=== PATIENT | female | born 1960 | race Caucasian/White ===

== ENCOUNTER 2024-07-22 21:11 | Inpatient (IN) | payer OTHER ==
[2024-07-22] MEDS ORDERED: ACETAMINOPHEN INJECTION 100 ML ONE (21:41)
[2024-07-22 22:00] LABS: BASO % 0.4 % (0-2.0); EOS % 4.4 % (0-4.5); HEMATOCRIT 35.6 % (32.4-45.2); HEMOGLOBIN 11.3 GM/dL (10.7-15.3); LYMPH % 2.3 % (8-40); MCHC 31.8 g/dl (32.0-36.0); MEAN CELL VOLUME 78.7 fl (80-96); MEAN PLT VOLUME 7.4 fl (7.5-11.1); MONO % 2.1 % (3.8-10.2); NEUT % 90.8 % (42.8-82.8); PLATELET COUNT 419 10^3/uL (134-434); RBC 4.53 M/mm3 (3.60-5.2); RDW 18.6 % (11.6-15.6); WHITE BLOOD COUNT 12.5 K/mm3 (4.0-10.0)
[2024-07-22 22:02] LABS: VENOUS BASE EXCESS -0.1 mmol/L (-2-2); VENOUS O2 SATURATION 96.5 % (70-80); VENOUS PCO2 30.6 mmHg (38-52); VENOUS PH 7.485 (7.310-7.410)
[2024-07-22 22:06] LABS: INR 1.15 (0.83-1.09); PROTHROMBIN TIME (PATIENT) 13.2 SEC (9.7-13.0)
[2024-07-22 22:09] LABS: ACTIVATED PTT 37.2 SECONDS (25.2-36.5)
[2024-07-22 22:22] LABS: POTASSIUM 4.7 mmol/L (3.5-5.1)
[2024-07-22] MEDS: SODIUM CHLORIDE 0.9% 500 ML INFUS.BAG IV ONE ×3 (22:23→23:40)
[2024-07-22 22:26] LABS: ALBUMIN 3.1 g/dl (3.4-5.0); CALCIUM 9.4 mg/dL (8.5-10.1)
[2024-07-22] MEDS: ACETAMINOPHEN 1000 MG/100 ML BAG IVPB ONE (22:26)
[2024-07-22 22:27] LABS: BLOOD UREA NITROGEN 24.9 mg/dL (7-18)
[2024-07-22 22:30] LABS: CREATININE 1.2 mg/dL (0.55-1.3)
[2024-07-22 22:31] LABS: BILIRUBIN,TOTAL 0.5 mg/dL (0.2-1); TOT PROT 7.4 g/dl (6.4-8.2)
[2024-07-22 22:40] LABS: LACTIC ACID 2.3 mmol/L (0.4-2.0)
[2024-07-22] MEDS ORDERED: PIPERACILLIN/TAZOB 2.25 GM 2.25 GM/50 ML BAG IVPB ONE (22:44)
[2024-07-22] MEDS: PIPERACILLIN/TAZOB 2.25 GM 2.25 GM in DEXTROSE 5%-WATER - 50 ML IVPB ONE (23:17)
[2024-07-22] MEDS ORDERED: VANCOMYCIN 1 GRAM (PRE-DOCKED) 1,000 MG/250 ML BAG IVPB ONE (23:37)
[2024-07-22] MEDS ORDERED: AZITHROMYCIN IVPB 500 MG/250 ML BAG IVPB ONE (23:57)
[2024-07-23] MEDS: AZITHROMYCIN IVPB 500 MG in DEXTROSE 5%-WATER - 250 ML IVPB ONE
[2024-07-23 00:02] LABS: EPI CELLS >36 /uL (0-25.1); HYALINE CASTS 8 /uL (0-3.1); URINE APPEARANCE CLOUDY; URINE BACTERIA 7 /uL (0-1359); URINE BILIRUBIN NEGATIVE (NEGATIVE); URINE COLOR YELLOW; URINE GLUCOSE (UA) NEGATIVE (NEGATIVE); URINE KETONE TRACE (NEGATIVE); URINE LEUK ESTERASE NEGATIVE (NEGATIVE); URINE NITRITE NEGATIVE (NEGATIVE); URINE PROTEIN 1+ (NEGATIVE); URINE RBC 26 /uL (0-23.9); URINE UROBILINOGEN 0.2 mg/dL (0.2-1.0)
[2024-07-23] MEDS ORDERED: NOREPINEPHRINE BITARTRATE 4 MG/4 ML ML IV ONE (00:51)
[2024-07-23] MEDS ORDERED: HYDROCORTISONE SOD SUCCINATE 100 MG/2 ML VIAL ONE (01:00)
[2024-07-23] MEDS: NOREPINEPHRINE BITARTRATE 4,000 MCG in DEXTROSE 5%-WATER - 496 ML IV SCH (01:05)
[2024-07-23] MEDS ORDERED: PHENYLEPHRINE HCL 10 MG/1 ML SINGLE DOSE VIAL ONE (01:08)
[2024-07-23] MEDS: HYDROCORTISONE SOD SUCCINATE 100 MG/2 ML VIAL IVPUSH ONE (01:10)
[2024-07-23] MEDS: VANCOMYCIN 1,000 MG in DEXTROSE 5%-WATER - 250 ML IVPB ONE (01:23)
[2024-07-23] MEDS: PHENYLEPHRINE HCL 10 MG/1 ML SINGLE DOSE VIAL IVPB ONE (01:24)
[2024-07-23 02:07] LABS: URINE WBC 152.4 /uL (0-25.8)
[2024-07-23 02:19] LABS: URINE CRYSTALS PRESENT /hpf
[2024-07-23 03:21] LABS: HEMOGLOBIN 9.7 GM/dL (10.7-15.3); MCH 25.1 pg (25.7-33.7); MCHC 32.4 g/dl (32.0-36.0); MEAN CELL VOLUME 77.4 fl (80-96); MEAN PLT VOLUME 7.2 fl (7.5-11.1); PLATELET COUNT 409 10^3/uL (134-434); RBC 3.88 M/mm3 (3.60-5.2); RDW 18.4 % (11.6-15.6); WHITE BLOOD COUNT 17.9 K/mm3 (4.0-10.0)
[2024-07-23] MEDS: MUPIROCIN 2% TOPICAL OINTMENT FOR DECOLONIZATION NS SCH (03:28)
[2024-07-23 03:41] LABS: POTASSIUM 3.9 mmol/L (3.5-5.1)
[2024-07-23 03:44] LABS: ALBUMIN 2.5 g/dl (3.4-5.0); BLOOD UREA NITROGEN 23.2 mg/dL (7-18); MAGNESIUM 1.4 mg/dL (1.8-2.4)
[2024-07-23 03:46] LABS: PHOSPHOROUS 3.1 mg/dL (2.5-4.9)
[2024-07-23 03:47] LABS: CREATININE 0.9 mg/dL (0.55-1.3)
[2024-07-23 03:48] LABS: BILIRUBIN,TOTAL 0.4 mg/dL (0.2-1); TOT PROT 6.1 g/dl (6.4-8.2)
[2024-07-23 03:52] LABS: N-TERMINAL BNP 1588.2 pg/ml (5-125)
[2024-07-23 04:06] LABS: ARTERIAL BLD GAS O2 SATURATION 98.2 % (95-98); ARTERIAL BLOOD GAS BASE EXCESS -4.3 mmol/L (-2-2); ARTERIAL BLOOD GAS PO2 113.2 mmHg (80-100); ARTERIAL BLOOD GAS pH 7.393 (7.350-7.450)
[2024-07-23 04:30] LABS: CALCIUM 7.7 mg/dL (8.5-10.1)
[2024-07-23] MEDS: NOREPINEPHRINE BITARTRATE/D5W 8 MG/250 ML BAG IVPB SCH (05:38)
[2024-07-23] MEDS: HEPARIN NA (PORCINE) 5,000 UNITS/ML 1ML VIAL SQ SCH (05:39)
[2024-07-23 05:40] LABS: ANISOCYTOSIS 1+; MACROCYTOSIS 0
[2024-07-23] MEDS ORDERED: ACETAMINOPHEN INJECTION 100 ML ONE (06:34)
[2024-07-23] MEDS: ACETAMINOPHEN 1000 MG/100 ML BAG IVPB ONE (06:35)
[2024-07-23] MEDS ORDERED: VANCOMYCIN 1,000 MG in DEXTROSE 5%-WATER - 250 ML IVPB SCH ×2 (07:15→10:30)
[2024-07-23] MEDS: MAGNESIUM 2GM/50ML STERILE WATER IVPB IVPB ONE (08:08)
[2024-07-23] MEDS: LACTATED RINGERS SOLUTION 1,000 ML/1,000 ML INFUS.BAG IV SCH (08:08)
[2024-07-23] MEDS ORDERED: PATIENT'S OWN MEDICATION (NON-FORMULARY) (Alendronate Sodium [Alendronate Sodium] 70 MG Ta PO SCH (09:15)
[2024-07-23] MEDS: GABAPENTIN 300 MG CAPSULE PO SCH (09:40)
[2024-07-23] MEDS: CEFTRIAXONE 1 GM in DEXTROSE 5%-WATER - 50 ML IVPB SCH (09:40)
[2024-07-23] MEDS: DULoxetine HCL 30 MG CAPSULE.DR PO SCH (09:40)
[2024-07-23] MEDS: NYSTATIN 500,000 UNITS/5 ML SUSPENSION PO SCH (09:40)
[2024-07-23] MEDS: FAMOTIDINE 20 MG TABLET PO SCH (09:40)
[2024-07-23] MEDS: AZITHROMYCIN IVPB 500 MG/250 ML BAG IVPB SCH (09:41)
[2024-07-23] MEDS ORDERED: PATIENT'S OWN MEDICATION (NON-FORMULARY) (Gabapentin [Gabapentin] 600 MG Tablet) PO SCH (10:00)
[2024-07-23] MEDS ORDERED: PIPERACILLIN/TAZOB 3.375 GM 3.375 GM in DEXTROSE 5%-WATER - 50 ML IVPB SCH ×2 (10:00→10:30)
[2024-07-23] MEDS: methylPREDNISolone NA SUCC 40 MG/1 ML VIAL IVPUSH SCH (11:28)
[2024-07-23] MEDS ORDERED: VANCOMYCIN/WATER FOR INJ (PEG) 1,000 MG/200 ML BAG IVPB SCH (13:00)
[2024-07-23] MEDS: MINERAL OIL/PET HY-PHL TOPICAL OINTMENT 454 GM JAR TP SCH (13:13)
[2024-07-23] MEDS: VANCOMYCIN/WATER FOR INJ (PEG) 1,000 MG/200 ML BAG IVPB SCH (13:15)
[2024-07-23] MEDS: PIPERACILLIN/TAZOB 3.375 GM 50 ML IVPB SCH (17:00)
[2024-07-23] MEDS: DOCUSATE SODIUM 100 MG CAPSULE (FP) PO SCH (21:15)
[2024-07-23] MEDS: CHLORHEXIDINE GLUCONATE 4% CLEANSER FOR DECOLONIZATION TP SCH (21:15)
[2024-07-23] MEDS: ACETAMINOPHEN 325 MG TABLET (FP) PO PRN (21:16)
[2024-07-24 06:02] LABS: HEMATOCRIT 25.7 % (32.4-45.2); HEMOGLOBIN 8.3 GM/dL (10.7-15.3); MCH 25.5 pg (25.7-33.7); MCHC 32.4 g/dl (32.0-36.0); MEAN CELL VOLUME 78.5 fl (80-96); MEAN PLT VOLUME 7.5 fl (7.5-11.1); PLATELET COUNT 278 10^3/uL (134-434); RBC 3.28 M/mm3 (3.60-5.2); RDW 18.1 % (11.6-15.6)
[2024-07-24 06:23] LABS: POTASSIUM 4.1 mmol/L (3.5-5.1)
[2024-07-24 06:25] LABS: ALBUMIN 2.3 g/dl (3.4-5.0); BLOOD UREA NITROGEN 20.8 mg/dL (7-18); CALCIUM 7.5 mg/dL (8.5-10.1); MAGNESIUM 2.1 mg/dL (1.8-2.4)
[2024-07-24 06:29] LABS: CREATININE 0.4 mg/dL (0.55-1.3); PHOSPHOROUS 2.6 mg/dL (2.5-4.9)
[2024-07-24 06:30] LABS: BILIRUBIN,TOTAL 0.3 mg/dL (0.2-1); TOT PROT 5.8 g/dl (6.4-8.2)
[2024-07-24] MEDS: PIPERACILLIN/TAZOB 3.375 GM 3.375 GM in DEXTROSE 5%-WATER - 50 ML IVPB SCH (06:36)
[2024-07-24] MEDS: DULoxetine HCL 30 MG CAPSULE.DR PO ONE (09:09)
[2024-07-24] MEDS: PIPERACILLIN/TAZOB 3.375 GM 50 ML IVPB SCH (09:11)
[2024-07-24 14:59] VITALS: BMI 22.1
[2024-07-24 18:14] VITALS: RESP 18
[2024-07-24] MEDS ORDERED: ARIPiprazole 2 MG TABLET PO SCH (18:15)
[2024-07-24] MEDS: ARIPiprazole 2 MG TABLET PO SCH (21:33)
[2024-07-25] MEDS: NYSTATIN 500,000 UNITS/5 ML SUSPENSION PO SCH (00:51)
[2024-07-25] MEDS: PIPERACILLIN/TAZOB 3.375 GM 50 ML IVPB SCH (01:06)
[2024-07-25] MEDS: HEPARIN NA (PORCINE) 5,000 UNITS/ML 1ML VIAL SQ SCH (05:47)
[2024-07-25] MEDS: ACETAMINOPHEN 325 MG TABLET (FP) PO PRN (06:15)
[2024-07-25] MEDS: FAMOTIDINE 20 MG TABLET PO SCH (09:19)
[2024-07-25 10:32] LABS: POTASSIUM 4.5 mmol/L (3.5-5.1)
[2024-07-25 10:36] LABS: ALBUMIN 2.6 g/dl (3.4-5.0); CALCIUM 8.5 mg/dL (8.5-10.1)
[2024-07-25 10:37] LABS: BLOOD UREA NITROGEN 15.6 mg/dL (7-18); MAGNESIUM 2.2 mg/dL (1.8-2.4)
[2024-07-25 10:40] LABS: CREATININE 0.4 mg/dL (0.55-1.3)
[2024-07-25 10:41] LABS: BILIRUBIN,TOTAL 0.2 mg/dL (0.2-1); TOT PROT 6.6 g/dl (6.4-8.2)
[2024-07-25 10:50] LABS: HEMATOCRIT 27.6 % (32.4-45.2); MCH 25.5 pg (25.7-33.7); MCHC 32.5 g/dl (32.0-36.0); MEAN CELL VOLUME 78.3 fl (80-96); RBC 3.52 M/mm3 (3.60-5.2); RDW 18.6 % (11.6-15.6)
[2024-07-25 10:51] LABS: WHITE BLOOD COUNT 9.9 K/mm3 (4.0-10.0)
[2024-07-25] MEDS: MINERAL OIL/PET HY-PHL TOPICAL OINTMENT 454 GM JAR TP SCH (12:16)
[2024-07-25] MEDS: DOCUSATE SODIUM 100 MG CAPSULE (FP) PO SCH (21:44)
[2024-07-26] MEDS ORDERED: DEXTROSE 50%-WATER 25 GM/50 ML DISP.SYRIN ONE (05:50)
[2024-07-26] MEDS: DEXTROSE 50%-WATER 25 GM/50 ML DISP.SYRIN IVPUSH ONE (05:53)
[2024-07-26] MEDS: ARIPiprazole 2 MG TABLET PO SCH (10:51)
[2024-07-27 02:47] VITALS: BP 124/80; PULSE 95; TEMP 98.6
== END 2024-07-27 07:02 | DRG 720 ==
LOC: JER 21:11 → JICU 07-23 01:15 → J6S 07-24 20:23
PROVIDERS: ADMIT Internal Medicine; ATTEND Internal Medicine
PROC: 4A133B1 Monitoring of Arterial Pressure, Peripheral, Percutaneous Approach (ICD-10-PCS; principal; 2024-07-23)
PROC: 4A133J1 Monitoring of Arterial Pulse, Peripheral, Percutaneous Approach (ICD-10-PCS; 2024-07-23)
PROC: 05HN33Z Insertion of Infusion Device into Left Internal Jugular Vein, Percutaneous Approach (ICD-10-PCS; 2024-07-23)
PROC: B544ZZA Ultrasonography of Left Jugular Veins, Guidance (ICD-10-PCS; 2024-07-23)
DX: A41.9 Sepsis, unspecified organism (principal); R65.21 Severe sepsis with septic shock; E87.3 Alkalosis; E87.20 Acidosis, unspecified; F33.9 Major depressive disorder, recurrent, unspecified; I24.89 Other forms of acute ischemic heart disease; J18.9 Pneumonia, unspecified organism; R44.2 Other hallucinations; K21.9 Gastro-esophageal reflux disease without esophagitis
CPT/HCPCS: 0241U-QW; 36415; 36600; 71045-TC-FY; 74177-TC; 76705-TC; 80053; 81003; 82803; 82962; 83605; 83690; 83735; 83880; 84100; 84439; 84443; 84484; 85025; 85027; 85610; 85730; 86850; 86870; 86880; 86900; 86901; 86902; 87040; 87086; 87481; 87899; 93005; 93010; 93308; 99291; J0131; J1644; Q9967